=== PATIENT | male | born 1970 | race Caucasian/White ===

== ENCOUNTER 2021-04-20 15:09 | Emergency (ER) | payer OTHER ==
[~2021-04-20] VITALS: Ht 177.8 cm; Wt 76.2 kg
[~2021-04-20 15:09] MED LIST: ANTIBIOTICO
== END 2021-04-20 19:46 | disposition home or self-care (01) ==
LOC: ER 15:09
DX: J00 Acute nasopharyngitis [common cold] (principal); J06.9 Acute upper respiratory infection, unspecified; Z11.52 Encounter for screening for COVID-19